=== PATIENT | male | born 1930 | race Caucasian/White ===

== ENCOUNTER 2018-12-28 12:44 | Inpatient (IN) | payer MEDICARE, BC ==
[~2018-12-28] VITALS: Ht 195.6 cm; Wt 100.7 kg
[2018-12-28] MEDS ORDERED: NITROGLYCERIN OINT 1 GM PACKET TP ONE ×2 (13:30→13:54)
[2018-12-28 13:36] LABS: BASOPHILS % (AUTO) 0.6 % (0.0-2.0); EOSINOPHILS # (AUTO) 0.3 K/uL (0.0-0.7); EOSINOPHILS % (AUTO) 3.2 % (0.0-7.0); HEMATOCRIT 46.1 % (36.7-47.1); LYMPHOCYTES # (AUTO) 3.3 K/uL (20.0-40.0); LYMPHOCYTES % (AUTO) 40.2 % (20.5-51.5); MEAN CORPUSCULAR HEMOGLOBIN 29.4 uug (23.8-33.4); MEAN CORPUSCULAR HGB CONC 33 g/dL (32.5-36.3); MEAN CORPUSCULAR VOLUME 90.6 fL (73.0-96.2); NEUTROPHILS # (AUTO) 3.6 K/uL (1.8-8.9); PLATELET COUNT (AUTO) 135 K/uL (152-348); RED BLOOD CELL COUNT(AUTO) 5.09 MIL/uL (4.06-5.63); WHITE BLOOD COUNT (AUTO) 8.2 K/uL (3.6-10.2)
[2018-12-28 13:52] LABS: ALANINE AMINOTRANSFERASE 22 U/L (16-63); ALKALINE PHOSPHATASE 64 U/L (50-136); ASPARTATE AMINOTRANSFERASE 27 U/L (15-37); BILIRUBIN,DIRECT 0.1 mg/dL (0.0-0.2); BILIRUBIN,TOTAL 0.6 mg/dL (0.2-1.0); CARBON DIOXIDE 23 mmol/L (21-32); CHLORIDE 104 mmol/L (98-107); CHOLESTEROL 138 mg/dL (<200); GLUCOSE 144 mg/dL (74-106); HDL CHOLESTEROL 50 mg/dL (40-60); POTASSIUM 3.2 mmol/L (3.5-5.1); TOTAL PROTEIN, SERUM 8.3 g/dL (6.4-8.2); TRIGLYCERIDES 178 MG/DL (30-150); UREA NITROGEN, BLOOD 17 mg/dL (7-18)
[2018-12-28] MEDS ORDERED: IV NORMAL SALINE 1000 ML BAG IV ONE (14:15)
[2018-12-28 15:45] VITALS: BP 179/105
[2018-12-28] MEDS ORDERED: MORPHINE SULFATE 2 MG/1 ML DISP.SYRIN IV PRN (16:30)
[2018-12-28] MEDS ORDERED: ONDANSETRON 4 MG/2 ML VIAL IV PRN (16:30)
[2018-12-28] MEDS ORDERED: POTASSIUM CHLORIDE 20 MEQ TAB.PRT.SR PO ONE (16:30)
[2018-12-28] MEDS ORDERED: ALBUTEROL SULFATE 2.5 MG/ 0.5 ML NEBU NEB PRN (16:30)
[2018-12-28] MEDS ORDERED: RIVA10TA PO (16:37)
[2018-12-28] MEDS ORDERED: POTA-10 PO (16:37)
[2018-12-28] MEDS ORDERED: ATOR40TA PO (16:37)
[2018-12-28] MEDS ORDERED: CHOL100045 PO (16:42)
[2018-12-28] MEDS ORDERED: METO100T7 PO (16:42)
[2018-12-28] MEDS ORDERED: MAGN296S70 PO (16:42)
[2018-12-28] MEDS ORDERED: LISI1TAB11 PO (16:42)
[2018-12-28] MEDS ORDERED: CYAN100071 PO (16:42)
[2018-12-28] MEDS ORDERED: CLONIDINE HCL 0.1 MG TABLET PO PRN (17:30)
[2018-12-28] MEDS ORDERED: NITROGLYCERIN 0.4 MG/TAB BOTTLE SL PRN (17:30)
[2018-12-28] MEDS ORDERED: NITROGLYCERIN OINT 1 GM PACKET TP PRN (17:45)
[2018-12-28] MEDS: ACETAMINOPHEN 325 MG TABLET PO PRN (18:30)
[2018-12-28 19:00] VITALS: BP 111/72
[2018-12-28 20:22] VITALS: BP 128/70
[2018-12-28] MEDS: FUROSEMIDE 20 MG/2 ML VIAL IV SCH (20:31)
[2018-12-28] MEDS ORDERED: RIVAROXABAN 10 MG TABLET PO ONE (20:48)
[2018-12-28] MEDS ORDERED: DOCUSATE SODIUM 100 MG CAPSULE PO SCH (21:00)
[2018-12-28] MEDS ORDERED: ATORVASTATIN 40 MG TABLET PO SCH (21:00)
[2018-12-29 00:42] VITALS: BP 127/66
[2018-12-29 04:59] VITALS: BP 111/50
[2018-12-29] MEDS: ACETAMINOPHEN 325 MG TABLET PO PRN (06:41)
[2018-12-29] MEDS ORDERED: PANTOPRAZOLE SODIUM 40 MG TABLET.DR PO SCH (07:00)
[2018-12-29 07:02] LABS: BASOPHILS % (AUTO) 0.6 % (0.0-2.0); EOSINOPHILS % (AUTO) 0.6 % (0.0-7.0); HEMATOCRIT 42.6 % (36.7-47.1); LYMPHOCYTES # (AUTO) 2.3 K/uL (20.0-40.0); LYMPHOCYTES % (AUTO) 28.3 % (20.5-51.5); MEAN CORPUSCULAR HEMOGLOBIN 29.9 uug (23.8-33.4); MEAN CORPUSCULAR HGB CONC 33 g/dL (32.5-36.3); MEAN CORPUSCULAR VOLUME 90.8 fL (73.0-96.2); MONOCYTES # (AUTO) 0.8 K/uL (2.0-10.0); MONOCYTES % (AUTO) 9.7 % (0.0-11.0); NEUTROPHILS % (AUTO) 60.8 % (38.5-71.5); PLATELET COUNT (AUTO) 129 K/uL (152-348); RED BLOOD CELL COUNT(AUTO) 4.69 MIL/uL (4.06-5.63); WHITE BLOOD COUNT (AUTO) 8.3 K/uL (3.6-10.2)
[2018-12-29 08:10] LABS: ALANINE AMINOTRANSFERASE 23 U/L (16-63); ALKALINE PHOSPHATASE 49 U/L (50-136); ASPARTATE AMINOTRANSFERASE 23 U/L (15-37); BILIRUBIN,TOTAL 0.7 mg/dL (0.2-1.0); CARBON DIOXIDE 27 mmol/L (21-32); CHLORIDE 104 mmol/L (98-107); CREATININE 1.3 mg/dL (0.6-1.3); GLUCOSE 104 mg/dL (74-106); MAGNESIUM 1.7 mg/dL (1.8-2.4); PHOSPHOROUS 3.5 mg/dL (2.5-4.9); POTASSIUM 3.7 mmol/L (3.5-5.1); UREA NITROGEN, BLOOD 20 mg/dL (7-18)
[2018-12-29 08:14] LABS: THYROID STIMULATING HORMONE 0.886 mIU/mL (0.358-3.740)
[2018-12-29] MEDS: FUROSEMIDE 20 MG/2 ML VIAL IV SCH (08:32)
[2018-12-29] MEDS ORDERED: RIVAROXABAN 10 MG TABLET PO SCH ×2 (09:00→18:00)
[2018-12-29] MEDS ORDERED: CHOLECALCIFEROL 1,000 UNIT TABLET PO SCH (09:00)
[2018-12-29] MEDS ORDERED: LISINOPRIL 20 MG TABLET PO SCH (09:00)
[2018-12-29] MEDS ORDERED: ASPIRIN EC 81 MG TABLET.DR PO SCH (09:00)
[2018-12-29] MEDS ORDERED: Medication Not On Formulary EA (Metoprolol Succinate (Toprol Xl) 1 TAB) PO SCH (09:00)
[2018-12-29] MEDS ORDERED: METOPROLOL SUCCINATE XL 50 MG TAB.SR.24H PO SCH (09:00)
[2018-12-29] MEDS ORDERED: Medication Not On Formulary EA (Lisinopril/HCTZ (Lisinopril-Hctz 20-12.5 Mg Tab) 1 TAB) PO SCH (09:00)
[2018-12-29] MEDS ORDERED: HYDROCHLOROTHIAZIDE 12.5 MG CAPSULE PO SCH (09:00)
[2018-12-29] MEDS ORDERED: CYANOCOBALAMIN 1,000 MCG TABLET PO SCH (09:00)
[2018-12-29 11:18] VITALS: BP 109/65
[2018-12-29] MEDS ORDERED: MAGNESIUM SULFATE/D5W 100 ML IV SCH (11:30)
[2018-12-29] MEDS ORDERED: POTASSIUM CHLORIDE 20 MEQ TAB.PRT.SR PO ONE (11:30)
[2018-12-29] MEDS ORDERED: ASPI-618 PO (15:12)
[2018-12-29 15:15] VITALS: BP 138/83
[2018-12-29 15:57] LABS: IRON, SERUM 74 ug/dL (50-175)
[2018-12-29 15:58] LABS: IRON, SERUM 50 ug/dL (50-175)
[2018-12-29 16:18] LABS: CHOLESTEROL 118 mg/dL (<200); HDL CHOLESTEROL 43 mg/dL (40-60); TRIGLYCERIDES 95 MG/DL (30-150)
== END 2018-12-29 16:55 | disposition home or self-care (01) | DRG 280 ==
LOC: ER 12:46 → TELE3 15:10
PROVIDERS: ADMIT Internal Medicine; ATTEND Internal Medicine
DX: I16.0 Hypertensive urgency (principal); I21.A1 Myocardial infarction type 2; I50.23 Acute on chronic systolic (congestive) heart failure; L03.116 Cellulitis of left lower limb; I11.0 Hypertensive heart disease with heart failure; I48.2 Chronic atrial fibrillation; I25.10 Atherosclerotic heart disease of native coronary artery without angina pectoris; Z95.1 Presence of aortocoronary bypass graft; I48.0 Paroxysmal atrial fibrillation; E87.6 Hypokalemia; F17.211 Nicotine dependence, cigarettes, in remission; D69.6 Thrombocytopenia, unspecified; I25.2 Old myocardial infarction; S81.802A Unspecified open wound, left lower leg, initial encounter; X58.XXXA Exposure to other specified factors, initial encounter; Y92.89 Other specified places as the place of occurrence of the external cause; Z79.01 Long term (current) use of anticoagulants; Z95.810 Presence of automatic (implantable) cardiac defibrillator; G89.29 Other chronic pain; G47.33 Obstructive sleep apnea (adult) (pediatric); J44.9 Chronic obstructive pulmonary disease, unspecified; M19.90 Unspecified osteoarthritis, unspecified site
CPT/HCPCS: 36415; 70030-TC; 70450; 71045; 83550; 83605; 83735; 84100; 84443; 85025; 85730; 86850; 86900; 86901; 87040; 93005; 93307; 97116; 97530; A4663; G0378; J1940; J3475; J7030; J7050